=== PATIENT | male | born 1990 | race African-American/Black ===

== ENCOUNTER 2019-05-12 22:32 | Emergency (ER) | payer MEDICAID ==
[~2019-05-12] VITALS: Ht 172.7 cm; Wt 74.0 kg
[2019-05-13] MEDS ORDERED: KETOROLAC 30MG/ML VIAL IM ONE (00:15)
[2019-05-13] MEDS ORDERED: LIDOCAINE HCL/PF 1% 10 MG/ML 5ML VIAL IJ ONE (00:15)
[2019-05-13] MEDS ORDERED: BACITRACIN ZINC OINT UDPKT TOP ONE (00:15)
[2019-05-13] MEDS ORDERED: TETANUS, DIPHTHERIA, PERTUSSIS VAC/PF 0.5ML (>7YR OLD) IM ONE (00:15)
[2019-05-13 00:37] VITALS: BP 135/52
[2019-05-13] MEDS ORDERED: MORPHINE SULFATE 4 MG/ML CPJ (NOT FOR IM USE) IV ONE (01:30)
[2019-05-13] MEDS ORDERED: CEFAZOLIN 1000MG PREMIX 50 ML IV ONE (01:30)
[2019-05-13] MEDS ORDERED: BACITRACIN 15GM TUBE TOP SCH (01:45)
[2019-05-13 01:50] LABS: BASOPHILS % 0.8 % (0.0-2.0); EOSINOPHILS % 0.7 % (0.0-5.0); HEMATOCRIT. 41.5 % (42.0-52.0); HEMOGLOBIN. 13.8 g/dL (14.0-18.0); LYMPHOCYTES % 16.1 % (20.0-50.0); MEAN CORPUSCULAR HEMOGLOBIN 30.4 pg (28.0-32.0); MEAN CORPUSCULAR VOLUME 91.3 fL (80.0-94.0); MEAN PLATELET VOLUME 9.5 fl (7.4-10.4); MONOCYTES % 5.9 % (2.0-8.0); NEUTROPHILS % 76.5 % (40.0-76.0); PLATELET 159 x1000/uL (130-400); RED BLOOD CELL COUNT 4.55 mill/uL (4.7-6.1); RED CELL DISTRIBUTION WIDTH 12.4 % (11.6-14.6)
[2019-05-13 01:57] LABS: CHLORIDE 108 mEq/L (98-107)
[2019-05-13 02:00] LABS: PARTIAL THROMBOPLASTIN TIME 24.9 sec (23.4-31.0)
== END 2019-05-13 03:30 | disposition short-term general hospital (02) ==
LOC: ER 22:32
DX: S02.0XXB Fracture of vault of skull, initial encounter for open fracture (principal); V49.49XA Driver injured in collision with other motor vehicles in traffic accident, initial encounter; Y93.89 Activity, other specified; Y92.410 Unspecified street and highway as the place of occurrence of the external cause; F17.210 Nicotine dependence, cigarettes, uncomplicated; F12.90 Cannabis use, unspecified, uncomplicated
CPT/HCPCS: 36415; 70450; 80048; 85025; 85610; 85730; 86850; 86900; 86901; 90471; 90715; 96365; 96372; 99285; J0690; J1885; J3490; Z7610